=== PATIENT | male | born 1995 | race Two or more races ===

== ENCOUNTER 2023-08-01 13:49 | Emergency (ER) | payer BC ==
[2023-08-01] MEDS: Lidocaine 2% with EPINEPHrine 1:100,000 20 ML MDV INJECT ONE (17:30)
[2023-08-01] MEDS: Bacitracin Oint 1 GM U/D Packet TOP ONE (17:48)
[2023-08-01] MEDS: Take Home: Sulfamethoxazole/Trimethoprim 800-160 MG Tab, 6 Tab Pack PO ONE (17:48)
== END 2023-08-01 18:10 | disposition home or self-care (01) ==
LOC: LL.ED 13:49
DX: S61.422A Laceration with foreign body of left hand, initial encounter (principal); W31.89XA Contact with other specified machinery, initial encounter; Y92.89 Other specified places as the place of occurrence of the external cause; Y99.0 Civilian activity done for income or pay
CPT/HCPCS: 12002; 73130-LT; 99283; A9270-GY; J3490

== ENCOUNTER 2024-05-12 20:35 | Emergency (ER) | payer BC ==
[2024-05-12] MEDS ORDERED: Sodium Chloride 0.9% 10 ML Syringe FLUSH PRN (20:39)
[2024-05-12 20:47] LABS: BASOPHILS ABSOLUTE AUTO 0.06 K/uL (0.00-0.20); BASOPHILS PERCENT AUTO 0.6 % (0.0-2.0); EOSINOPHILS ABSOLUTE AUTO 0.18 K/uL (0.00-0.50); EOSINOPHILS PERCENT AUTO 1.8 % (0.0-5.0); HEMATOCRIT 44.9 % (39.0-49.0); HEMOGLOBIN 15.6 g/dL (13.1-16.8); LYMPHOCYTES ABSOLUTE AUTO 3.84 K/uL (0.50-3.50); MEAN CORPUSCULAR HEMOGLOBIN 32.2 pg (28.2-33.3); MEAN CORPUSCULAR HGB CONC 34.7 g/dL (31.7-36.0); MEAN CORPUSCULAR VOLUME 92.6 fL (84.0-98.0); MONOCYTES ABSOLUTE AUTO 0.83 K/uL (0.00-1.00); MONOCYTES PERCENT AUTO 8.4 % (2.0-14.0); NEUTROPHILS ABSOLUTE AUTO 4.94 K/uL (1.40-7.00); NEUTROPHILS PERCENT AUTO 50.2 % (45.0-80.0); PLATELET COUNT,PLT 383 K/uL (150-350); RED BLOOD CELL COUNT 4.85 M/uL (4.33-5.41); RED CELL DISTRIBUTION WIDTH 12.6 % (11.2-14.1); WHITE BLOOD CELL COUNT,WBC 9.9 K/uL (4.0-10.2)
[2024-05-12 21:07] LABS: ALANINE AMINOTRANSFERASE,ALT 30 U/L (12-78); ALKALINE PHOSPHATASE 73 IU/L (46-116); ANION GAP 11.7 meq/L (7-15); ASPARTATE AMNIOTRANSFERASE,AST 19 U/L (15-37); BILIRUBIN TOTAL 0.1 mg/dL (0.2-1.0); BLOOD UREA NITROGEN,BUN 10 mg/dL (7-18); CARBON DIOXIDE,CO2 26.3 mmol/L (21.0-32.0); CHLORIDE,CL 103 mmol/L (98-107); CREATININE 1.06 mg/dL (0.51-1.17); GLUCOSE RANDOM 101 mg/dL (70-99); MAGNESIUM 1.9 mg/dL (1.8-2.4); POTASSIUM,K 4.5 mmol/L (3.5-5.1); PROTEIN TOTAL,TP 7.5 g/dL (6.4-8.2); SODIUM,NA 141 mmol/L (136-145)
[2024-05-12] MEDS: Iopamidol 612 MG/ML 100 ML Bottle IVPUSH ONE (21:12)
[2024-05-12 21:15] LABS: ESTIMATED GFR 98 mL/min (>=60)
[2024-05-12] MEDS: Ketorolac 15 MG/ML SDV IVPUSH ONE (22:20)
[2024-05-12] MEDS: Sodium Chloride 0.9% 10 ML Syringe FLUSH PRN (22:20)
== END 2024-05-12 22:40 ==
LOC: LL.ED 20:35
DX: S22.42XA Multiple fractures of ribs, left side, initial encounter for closed fracture (principal); S42.025A Nondisplaced fracture of shaft of left clavicle, initial encounter for closed fracture; W17.89XA Other fall from one level to another, initial encounter
CPT/HCPCS: 36415; 70450; 71260; 72125; 74177; 80053; 83735; 84484; 85025; 85610; 93005; 93010; 96374; 99284; 99285-25; J1885; J3490; Q9967